=== PATIENT | female | born 1995 | race Caucasian/White ===

== ENCOUNTER → 2017-09-16 07:30 | Observation (INO) ==
[2017-09-16 05:37] VITALS: BP 113/65
--- NOTE | 2017-09-16 07:04 | Discharge Summary ---
Date of Encounter: 09/16/17 Time of Encounter: 07:04 - Discharge Diagnosis (1) 36 weeks gestation of Priority: Primary Status: Acute Comments: admitted for labor evaluation GBS collected (2) HSV infection Priority: Secondary Status: Acute Comments: history of HSV infection Patient currently taking Valtrex 500mg po BID - Discharge Medications Home Medications: Formula Tablet 1 tab PO DAILY 09/16/17 [History] Valtrex 500 PO BID 09/16/17 [History] Allergies/Adverse Reactions: 3 Allergy/AdvReac Type Severity Reaction Status Date / Time No Known Allergies Allergy Verified 02/21/17 19:37 Date of admission: 09/16/17 05:12 Discharging clinician: Alvina Carlin Anticipated date of discharge: 09/16/17 - Patient Status Disposition: Home, Self-Care Condition: Good Functional capacity at discharge: independent ambulation - Discharge Instructions Follow Up With: Cheng De Jesus MD [Partnered Physician] - Forms: Work/School Release - Diet and Activity Activity: increase activity as tolerated Diet: regular diet Hospital Course [employer] DR[employer] WORKER Time Attestation: Total time spent providing and/or coordinating discharge services: Time Spent: Less than 30 minutes Exam - Constitutional Vitals: Temp Pulse Resp BP 98.2 F 87 18 113/65 09/16/17 05:28 09/16/17 05:28 09/16/17 05:28 09/16/17 05:28 General appearance IM: A&O X 3, pleasant, no acute distress, answers questions appropriately - Respiratory Respiratory exam: Present: CTAB - Cardiovascular Cardiovascular exam IM: Present: RRR, +S1, +S2 - GI/Abdominal GI/Abdominal exam IM: normal bowel sounds - Extremities Exam Extremities exam IM: Present: calf tenderness, full ROM, normal inspection - Neurological Exam Neurological exam: alert, oriented X3, reflexes normal - Other Additional findings: FHR 130 bpm moderate variability +15x15 accels no decels noted. Contractions irregular. Group B strep culture collected prior to SVE. SVE on admission /- 2. No cervical change after 2 hours of monitoring. Patient reports +FM. - VTE Reasons for not Prescribing Prophylaxis: Treatment not Indicated - Low risk for VTE
[2017-09-16 08:20] LABS: Bilirubin,Urine Negative (Negative); Blood,Urine Negative (Negative); Clarity,Urine Cloudy (Clear); Color,Urine Yellow (Yellow); Glucose,Urine (UA) Normal (Normal); Ketones,Urine Trace mg/dL (Negative); Leukocyte Esterase,Urine Large (Negative); Nitrite,Urine Positive (Negative); PH,Urine 6.5 pH Units (5.0-8.0); Protein,Urine Negative (Neg-Trace); Specific Gravity,Urine 1.019 (1.010-1.025); Urobilinogen,Urine Normal (Normal)
[2017-09-16 08:22] LABS: Bacteria,Urine Many per hpf (None-Few); Hyaline Casts,Urine None Seen per lpf (None-Few); RBC,Urine 0-3 per hpf (0-3); Squamous Epithelial Cell,Urine Many per lpf (None-Few); WBC,Urine 50-100 per hpf (0-3)
[2017-09-16 08:58] LABS: Amphetamine Screen,Urine Negative ng/mL (Cutoff=1000); Barbiturate Screen,Urine Negative ng/mL (Cutoff=200); Benzodiazepines Screen,Urine Negative ng/mL (Cutoff=200); Cannabinoid Screen,Urine Negative ng/mL (Cutoff = 50); Cocaine Screen,Urine Negative ng/mL (Cutoff= 300); Opiate Screen,Urine Negative ng/mL (Cutoff=300); Phencyclidine Screen,Urine Negative ng/mL (Cutoff=25)
== END | disposition home or self-care (01) ==
LOC: 1NENULAB
PROVIDERS: ADMIT Advanced Practice Midwife; ATTEND Advanced Practice Midwife

== ENCOUNTER 2017-09-19 00:59 | Inpatient (IN) ==
[2017-09-18 21:41] LABS: Amphetamine Screen,Urine Negative ng/mL (Cutoff=1000); Barbiturate Screen,Urine Negative ng/mL (Cutoff=200); Benzodiazepines Screen,Urine Negative ng/mL (Cutoff=200); Cannabinoid Screen,Urine Negative ng/mL (Cutoff = 50); Cocaine Screen,Urine Negative ng/mL (Cutoff= 300); Opiate Screen,Urine Negative ng/mL (Cutoff=300); Phencyclidine Screen,Urine Negative ng/mL (Cutoff=25)
[2017-09-18 21:42] LABS: Basophils % 0.1 %; Hematocrit 35.8 % (35.3-44.9); Hemoglobin 11.9 g/dL (11.5-15.4); Immature Granulocytes % 1.2 % (0-4); Lymphocytes % 4.4 %; Mean Corpuscular HGB Conc 33.2 g/dL (31.6-35.5); Mean Corpuscular Hemoglobin 30.8 pg (28.0-33.3); Mean Corpuscular Volume 92.7 fL (83.0-100.0); Mean Platelet Volume 11.1 fL (9.4-12.4); Monocytes # 1.6 K/mcL (0.0-1.3); Monocytes % 6.7 %; Neutrophils # 20.5 K/mcL (1.6-8.9); Platelet Count 155 K/mcL (140-400); Red Blood Count 3.86 M/mcL (3.82-4.97); Red Cell Distribution Width 13.2 % (11.5-14.5); Segmented Neutrophils % 87.6 %
[2017-09-18 23:11] LABS: Bilirubin,Urine Negative (Negative); Blood,Urine Negative (Negative); Clarity,Urine Cloudy (Clear); Color,Urine Yellow (Yellow); Glucose,Urine (UA) Normal (Normal); Ketones,Urine >=160 mg/dL (Negative); Leukocyte Esterase,Urine Moderate (Negative); Nitrite,Urine Negative (Negative); Protein,Urine 30 mg/dL (Neg-Trace); Specific Gravity,Urine 1.017 (1.010-1.025); Urobilinogen,Urine Normal (Normal)
[2017-09-18 23:14] LABS: Bacteria,Urine Moderate per hpf (None-Few); RBC,Urine 0-3 per hpf (0-3); Squamous Epithelial Cell,Urine Many per lpf (None-Few); WBC,Urine 50-100 per hpf (0-3)
[2017-09-18 23:33] LABS: Hyaline Casts,Urine None Seen per lpf (None-Few); Mucus,Urine Many (Few)
--- NOTE | 2017-09-18 23:45 | OB/GYN History & Physical ---
Date of Encounter: 09/18/17 Time of Encounter: 23:30 Assessment and Plan (1) Pyelonephritis affecting in third trimester Current visit: Yes Status: Acute Positive for UTI and 09/16 treated since culture obtained, bilateral CVA tenderness right greater than left, elevated wbc's of 23.4 Probable pyelonephritis Discussed with Dr. Chaves Admission to antepartum for IV antibiotics Rocephin IV 2 g daily One dose Nubain now for contraction and intense back pain Zofran for nausea as needed Every shift NST CBC and renal ultrasound in a.m. (2) Uterine contractions Current visit: Yes Status: Acute Cervix unchanged on serial exams. /-2 (3) 36 weeks gestation of Current visit: No Status: Acute (4) HSV infection Current visit: No Status: Acute continue valtrex BID for supressive therapy. No lesions noted on vaginal exam (5) Estefania infection of genital region Current visit: Yes Status: Acute Due to recent use of antibiotics and vaginal discomfort and thick white discharge will treat with terazol. History of Present Illness Chief complaint: back pain/contractions HPI: Ms. Winston is a 21 year old female 36+3 gestation presents to triage with complaints of increasing back pain and contractions since this morning. Pt states the back pain has increased all day and never stops. Contractions remain intermittent, but increase the back pain when they occur. Reports good movement, denies vaginal bleeding or leaking of fluid, but does have increased vaginal sensitivity and discomfort. Pt states she has noted an increase in urinary frequency, but no burning or pain currently with urination. Patient completed a course of Keflex for UTI 1 week ago on the Keflex improved symptoms minimally but did not completely eliminate urinary symptoms. Patient was seen in triage on 09/16 for same symptoms, urine culture did show positive Escherichia coli UTI Past Med Surg Social Fam HX - Past Medical History Medical history: non-contributory, asthma Psychiatric history: no psych history - Past Surgical History Surgical History: other - Social History Smoking Status: Never smoker Smokeless Tobacco Status: No Alcohol use: none Drug use: none - Family History Sister Living Status: Still Living Hx Family Cardiac Disorders: No Hx Family Respiratory Disorders: No Hx Family Cancer: No Hx Family GI Disorders: No Hx Family Endocrine Disorder: No Hx Family Neuromuscular Disorders: No Hx Family Neurologic Disorders: No Hx Family HEENT Disorders: No Hx Family Autoimmune Disorders: No Hx Family Medical Disorders: No (pt denies history) Obstetrical History - Pregnancies : 1 Para: 0 Term: 0 : 0 Ab's: 0 Livin Medications and Allergies Formula Tablet 1 tab PO DAILY 09/16/17 [History] Valtrex 500 PO BID 09/16/17 [History] Albuterol Inhaler 09/18/17 [History] 3 Allergy/AdvReac Type Severity Reaction Status Date / Time No Known Allergies Allergy Verified 09/18/17 20:18 Review of System OB All systems PM: reviewed and no additional remarkable complaints except as stated - Genitourinary Genitourinary: as per HPI Exam - Constitutional Constitutional: well developed, well nourished, no acute distress, average body habitus - Neck Neck exam: full ROM - Lungs Respiratory exam: CTAB - Cardiovascular Cardiovascular exam: RRR - Abdomen Abdomen: Present: bowel sounds normal, gravid Abdomen detail: right lower quadrant: tenderness (suprapubic tenderness ), left lower quadrant: tenderness - Vagina Vagina: Present: discharge (bilateral labia reddned with thick white discharge noted. ) - Cervix Dilation: 1 Effacement: 80 Station: -2 - Uterus Uterus exam: Present: normal size, normal contour - Anus/Rectum Anus/Rectum: Present: normal perianal skin - Comments Comments: Bilateral CVA tenderness right >left Results Result Diagrams: 09/18/17 21:25 Abnormal lab results WBC 23.4 K/mcL (4.3-11.1) H 09/18/17 21:25 Neutrophils # 20.5 K/mcL (1.6-8.9) H 09/18/17 21:25 Monocytes # 1.6 K/mcL (0.0-1.3) H 09/18/17 21:25 Urine Clarity Cloudy (Clear) A 09/18/17 22:50 Urine Protein 30 mg/dL (Neg-Trace) H 09/18/17 22:50 Urine Ketones >=160 mg/dL (Negative) H 09/18/17 22:50 Ur Leukocyte Esterase Moderate (Negative) H 09/18/17 22:50 All other labs normal. - VTE Reasons for not Prescribing Prophylaxis: Treatment not Indicated - Low risk for VTE
[~2017-09-19 00:59] MED LIST: *HR* Nalbuphine 20 MG/ML AMPUL IVP ONE; *HR* Nalbuphine 20 MG/ML AMPUL ONE; Acetaminophen 325 MG TABLET PO PRN; Ondansetron 4 MG/2 ML VIAL IVP PRN; Ringers Solution, Lactated 1,000 ML IVC ONE; Ringers Solution, Lactated 1,000 ML IVC SCH; Ringers Solution, Lactated 1,000 ML ONE; Terconazole Vag CRM 20 GM TUBE VG SCH; Water for inj. (sterile) 10 ML IV ONE; cefTRIAXone 2,000 MG in Water for inj. (sterile) 20 ML IVP SCH
[2017-09-19 08:10] LABS: Basophils % 0.1 %; Eosinophils % 0.2 %; Hematocrit 28.1 % (35.3-44.9); Immature Granulocytes % 0.8 % (0-4); Lymphocytes # 1.4 K/mcL (0.6-4.6); Lymphocytes % 7.9 %; Mean Corpuscular HGB Conc 33.8 g/dL (31.6-35.5); Mean Corpuscular Volume 91.8 fL (83.0-100.0); Mean Platelet Volume 10.8 fL (9.4-12.4); Monocytes # 1.2 K/mcL (0.0-1.3); Monocytes % 6.9 %; Neutrophils # 14.3 K/mcL (1.6-8.9); Platelet Count 130 K/mcL (140-400); Red Blood Count 3.06 M/mcL (3.82-4.97); Red Cell Distribution Width 13.3 % (11.5-14.5); Segmented Neutrophils % 84.1 %
[2017-09-19 08:13] LABS: Hemoglobin 9.5 g/dL (11.5-15.4)
[2017-09-19 08:59] VITALS: BP 93/53
[2017-09-19] MEDS ORDERED: valACYclovir 500 MG TABLET PO SCH (09:00)
--- NOTE | 2017-09-19 12:08 | Discharge Summary ---
Date of Encounter: 09/19/17 Time of Encounter: 12:06 - Discharge Diagnosis (1) Urinary tract infection during in third trimester, antepartum Priority: Secondary Status: Acute Comments: Patient received IV antibiotics. Will discharge home with PO antibiotics patient to follow up with Dr. De Jesus as scheduled. (2) 36 weeks gestation of Priority: Primary Status: Acute Comments: admitted for observation - Discharge Medications Prescriptions: Nitrofurantoin (BID) [Macrobid] 100 mg PO BID 7 Days #14 capsule Home Medications: Formula Tablet 1 tab PO DAILY 09/16/17 [History] Valtrex 500 PO BID 09/16/17 [History] Albuterol Inhaler 09/18/17 [History] Acetaminophen [Tylenol] 650 mg PO Q6HR PRN tablet 09/19/17 [Rx] Nitrofurantoin (BID) [Macrobid] 100 mg PO BID 7 Days #14 capsule 09/19/17 [Rx] Terconazole Vag CRM [Terazol] 1 appl VG HS tube 09/19/17 [Rx] valACYclovir [Valtrex] 500 mg PO BID tablet 09/19/17 [Rx] Allergies/Adverse Reactions: 3 Allergy/AdvReac Type Severity Reaction Status Date / Time No Known Allergies Allergy Verified 09/18/17 20:18 Data Procedures and tests throughout hospitalization: Laboratory Tests 09/18/17 09/18/17 09/18/17 20:15 21:25 22:50 WBC 23.4 H RBC 3.86 Hgb 11.9 Hct 35.8 MCV 92.7 MCH 30.8 MCHC 33.2 RDW 13.2 Plt Count 155 MPV 11.1 Immature Gran % 1.2 Seg Neutrophils % 87.6 Lymphocytes % 4.4 Monocytes % 6.7 Eosinophils % 0.0 Basophils % 0.1 Neutrophils # 20.5 H Lymphocytes # 1.0 Monocytes # 1.6 H Eosinophils # 0.0 Basophils # 0.0 Urine Color Yellow Urine Clarity Cloudy A Urine pH 6.0 Ur Specific [place] 1.017 Urine Protein 30 H Urine Glucose (UA) Normal Urine Ketones >=160 H Urine Blood Negative Urine Nitrite Negative Urine Bilirubin Negative Urine Urobilinogen Normal Ur Leukocyte Esterase Moderate H Urine Microscopic RBC 0-3 Urine Microscopic WBC 50-100 H Ur Squamous Epith Cells Many H Urine Bacteria Moderate H Hyaline Casts None Seen Urine Mucus Many H Ur Culture Indicated? YES A Urine Opiates Screen Negative Ur Barbiturates Screen Negative Ur Phencyclidine Scrn Negative Ur Amphetamines Screen Negative U Benzodiazepines Scrn Negative Urine Cocaine Screen Negative U Marijuana (THC) Screen Negative 09/19/17 07:56 WBC 17.0 H RBC 3.06 L Hgb 9.5 L D Hct 28.1 L MCV 91.8 MCH 31.0 MCHC 33.8 RDW 13.3 Plt Count 130 L MPV 10.8 Immature Gran % 0.8 Seg Neutrophils % 84.1 Lymphocytes % 7.9 Monocytes % 6.9 Eosinophils % 0.2 Basophils % 0.1 Neutrophils # 14.3 H Lymphocytes # 1.4 Monocytes # 1.2 Eosinophils # 0.0 Basophils # 0.0 Urine Color Urine Clarity Urine pH Ur Specific [place] Urine Protein Urine Glucose (UA) Urine Ketones Urine Blood Urine Nitrite Urine Bilirubin Urine Urobilinogen Ur Leukocyte Esterase Urine Microscopic RBC Urine Microscopic WBC Ur Squamous Epith Cells Urine Bacteria Hyaline Casts Urine Mucus Ur Culture Indicated? Urine Opiates Screen Ur Barbiturates Screen Ur Phencyclidine Scrn Ur Amphetamines Screen U Benzodiazepines Scrn Urine Cocaine Screen U Marijuana (THC) Screen Labs on day of discharge: Labs from last 24 hours 09/19/17 09/18/17 09/18/17 07:56 22:50 21:25 WBC 17.0 H 23.4 H RBC 3.06 L 3.86 Hgb 9.5 L D 11.9 Hct 28.1 L 35.8 MCV 91.8 92.7 MCH 31.0 30.8 MCHC 33.8 33.2 RDW 13.3 13.2 Plt Count 130 L 155 MPV 10.8 11.1 Immature Gran % 0.8 1.2 Seg Neutrophils % 84.1 87.6 Lymphocytes % 7.9 4.4 Monocytes % 6.9 6.7 Eosinophils % 0.2 0.0 Basophils % 0.1 0.1 Neutrophils # 14.3 H 20.5 H Lymphocytes # 1.4 1.0 Monocytes # 1.2 1.6 H Eosinophils # 0.0 0.0 Basophils # 0.0 0.0 Urine Color Yellow Urine Clarity Cloudy A Urine pH 6.0 Ur Specific [place] 1.017 Urine Protein 30 H Urine Glucose (UA) Normal Urine Ketones >=160 H Urine Blood Negative Urine Nitrite Negative Urine Bilirubin Negative Urine Urobilinogen Normal Ur Leukocyte Esterase Moderate H Urine Microscopic RBC 0-3 Urine Microscopic WBC 50-100 H Ur Squamous Epith Cells Many H Urine Bacteria Moderate H Hyaline Casts None Seen Urine Mucus Many H Ur Culture Indicated? YES A Urine Opiates Screen Ur Barbiturates Screen Ur Phencyclidine Scrn Ur Amphetamines Screen U Benzodiazepines Scrn Urine Cocaine Screen U Marijuana (THC) Screen 09/18/17 20:15 WBC RBC Hgb Hct MCV MCH MCHC RDW Plt Count MPV Immature Gran % Seg Neutrophils % Lymphocytes % Monocytes % Eosinophils % Basophils % Neutrophils # Lymphocytes # Monocytes # Eosinophils # Basophils # Urine Color Urine Clarity Urine pH Ur Specific [place] Urine Protein Urine Glucose (UA) Urine Ketones Urine Blood Urine Nitrite Urine Bilirubin Urine Urobilinogen Ur Leukocyte Esterase Urine Microscopic RBC Urine Microscopic WBC Ur Squamous Epith Cells Urine Bacteria Hyaline Casts Urine Mucus Ur Culture Indicated? Urine Opiates Screen Negative Ur Barbiturates Screen Negative Ur Phencyclidine Scrn Negative Ur Amphetamines Screen Negative U Benzodiazepines Scrn Negative Urine Cocaine Screen Negative U Marijuana (THC) Screen Negative - Impressions ITS Impressions Retroperitoneum Ultrasound 09/19/17 09:00 IMPRESSION: 1. Bilateral hydronephrosis. Distal obstructing stones cannot be excluded. The ureteral jets were not visualized. 2. Unremarkable bladder ultrasound. D/ / 09/19/2017 11:17:01 Orlando Day MD / merged with [facility] Interpreting Provider: Orlando Day MD Date of admission: 09/19/17 11:33 Primary care physician: Nella Baumann CNP Discharging clinician: Alvina Carlin Anticipated date of discharge: 09/19/17 - Patient Status Disposition: Home, Self-Care Condition: Good Functional capacity at discharge: independent ambulation - Discharge Instructions Follow Up With: Nella Baumann CNP [Primary Care Provider] - Cheng De Jesus MD [Partnered Physician] - - Diet and Activity Activity: increase activity as tolerated Diet: regular diet Hospital Course 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 Time Attestation: Total time spent providing and/or coordinating discharge services: Time Spent: Less than 30 minutes Exam - Constitutional Vitals: Temp Pulse Resp BP Pulse Ox 98.0 F 92 18 93/53 98 09/19/17 07:30 09/19/17 07:30 09/19/17 07:30 09/19/17 07:30 09/19/17 01:00 General appearance IM: A&O X 3, pleasant, answers questions appropriately - Respiratory Respiratory exam: Present: CTAB - Cardiovascular Cardiovascular exam IM: Present: RRR, +S1, +S2 - GI/Abdominal GI/Abdominal exam IM: normal bowel sounds - Extremities Exam Extremities exam IM: Present: full ROM, normal capillary refill - VTE Reasons for not Prescribing Prophylaxis: Treatment not Indicated - Low risk for VTE
== END 2017-09-19 13:30 | disposition home or self-care (01) | DRG 781 ==
LOC: 1NENULAB → 1NENUOBS 00:59
PROVIDERS: ADMIT Obstetrics & Gynecology; ATTEND Obstetrics & Gynecology

== ENCOUNTER 2017-10-06 04:00 | Inpatient (IN) ==
[2017-10-06] MEDS ORDERED: *HR* Nalbuphine 20 MG/ML AMPUL IVP PRN (04:23)
[2017-10-06] MEDS ORDERED: Metoclopramide 10 MG/2 ML VIAL IVP PRN (04:23)
[2017-10-06] MEDS ORDERED: miSOPROStol 25 MCG TABLET VG PRN (04:23)
[2017-10-06] MEDS ORDERED: Naloxone 0.4 MG/ML INJ IVP PRN ×2 (04:23→08:53)
[2017-10-06] MEDS ORDERED: Famotidine 20 MG/2 ML VIAL IVP PRN (04:23)
[2017-10-06] MEDS ORDERED: Ondansetron 4 MG/2 ML VIAL IVP PRN ×2 (04:23→08:53)
[2017-10-06] MEDS ORDERED: Penicillin G Potassium 5,000,000 UNIT in D5% in Water (Mini-Bag+) 100 ML IVPB ONE (04:47)
[2017-10-06 04:57] LABS: Basophils % 0.1 %; Eosinophils # 0.1 K/mcL (0.0-0.6); Eosinophils % 1.7 %; Hematocrit 32.8 % (35.3-44.9); Hemoglobin 10.7 g/dL (11.5-15.4); Immature Granulocytes % 0.5 % (0-4); Immature Platelets 6.4 % (1.1-6.1); Lymphocytes # 2.2 K/mcL (0.6-4.6); Lymphocytes % 26.4 %; Mean Corpuscular HGB Conc 32.6 g/dL (31.6-35.5); Mean Corpuscular Hemoglobin 30.7 pg (28.0-33.3); Mean Platelet Volume 10.9 fL (9.4-12.4); Monocytes # 0.4 K/mcL (0.0-1.3); Monocytes % 4.6 %; Neutrophils # 5.6 K/mcL (1.6-8.9); Platelet Count 230 K/mcL (140-400); Red Blood Count 3.49 M/mcL (3.82-4.97); Red Cell Distribution Width 14.4 % (11.5-14.5); Segmented Neutrophils % 66.7 %
[2017-10-06] MEDS: Ringers Solution, Lactated 1,000 ML IVC SCH ×3 (05:11→12:30)
[2017-10-06 05:14] LABS: Amphetamine Screen,Urine Negative ng/mL (Cutoff=1000); Barbiturate Screen,Urine Negative ng/mL (Cutoff=200); Benzodiazepines Screen,Urine Negative ng/mL (Cutoff=200); Cannabinoid Screen,Urine Negative ng/mL (Cutoff = 50); Cocaine Screen,Urine Negative ng/mL (Cutoff= 300); Opiate Screen,Urine Negative ng/mL (Cutoff=300); Phencyclidine Screen,Urine Negative ng/mL (Cutoff=25)
[2017-10-06] MEDS ORDERED: *HR* FentaNYL (PF) 100 MCG/2 ML VIAL EP ONE (08:53)
[2017-10-06] MEDS ORDERED: EPHEDrine 50 MG/ML VIAL IVP PRN (08:53)
[2017-10-06] MEDS ORDERED: Bupivacaine-MPF 0.25% 10 ML VIAL EP ONE (08:53)
--- NOTE | 2017-10-06 08:57 | Anesthesia Evaluation PreOp ---
Date of Encounter: 10/06/17 Time of Encounter: 08:55 - Past History Planned Operation: SANGEETA Cardiac History: Denies any Significant Hx Pulmonary History: Asthma (uses albuterol inhaler approximately 3x weekly) [employer] History: Denies Any Significant HX Other Medical History: Denies Any Significant HX Anesthesia History: No Prior Anesthetic Complications, Past Anesthesia (wisdom teeth extraction) : Yes Alcohol Use: none Drug use: none Medications and Allergies Formula Tablet 1 tab PO DAILY 09/16/17 [History] Valtrex 500 mg PO BID 09/16/17 [History] Albuterol Inhaler 1 puff PO PRN PRN 09/18/17 [History] Acetaminophen [Tylenol] 650 mg PO Q6HR PRN tablet 09/19/17 [Rx] valACYclovir [Valtrex] 500 mg PO BID tablet 09/19/17 [Rx] 3 Allergy/AdvReac Type Severity Reaction Status Date / Time No Known Allergies Allergy Verified 10/06/17 04:47 - Meds/Allergy Pre-op Review Medications Reviewed: Yes Allergies Reviewed: Yes Beta Blockers on Current Med List: No Anesthesia Results - Labs 10/06/17 04:48 Anesthesia Exam BP 117/72 P 66 R 16 T 97.8 Height: 5'2" Weight: 58.9kg NPO (# of Hours): 6 Pain Scale: 10 Pain Scale Used: Numeric (1 - 10) - HEENT Pupil (Motor): Pupils equal Mallampati: II Teeth: Normal Oral Opening: Greater than 3 - [employer] LOC: Oriented [employer] Motor: Normal RUE, Normal LUE, Normal RLE, Normal LLE, Normal Face [employer] Sensory: Normal: RUE, LUE, RLE, LLE, Face - Cardiac Rhythm: Regular Murmur: None JVD: No Carotid Bruit: No - Pulmonary Breath Sounds: bilateral Clear Respiratory Effort: Symmetrical Anesthesia Assess/Plan ASA Score: 2 Modified [place] Scale for Level of Consciousness: Cooperative, oriented, and tranquil Anesthetic Plan: Regional Autologous Blood: No Monitoring Plan: Standard Monitors Recovery Plan: Other
[2017-10-06] MEDS ORDERED: Penicillin G Potassium 2,500,000 UNIT in D5% in Water 100 ML IVPB SCH (09:00)
[2017-10-06] MEDS ORDERED: Epidural Premix (fent/bupiv) 110 ML EP SCH (09:00)
[2017-10-06] MEDS ORDERED: *HR* FentaNYL (PF) 100 MCG/2 ML VIAL ONE (09:04)
[2017-10-06] MEDS ORDERED: Bupivacaine-MPF 0.25% 10 ML VIAL ONE (09:04)
[2017-10-06] MEDS ORDERED: Epidural Premix (fent/bupiv) 110 ML EP ONE (09:06)
--- NOTE | 2017-10-06 10:16 | Anesthesia Procedures ---
Date of Encounter: 10/06/17 Time of Encounter: 09:50 Procedures: Anesthesia - Epidural/Spinal Patient ID/Chart reviewed: Yes Patient examined: Yes OB Eval: Gestational age: 39 OB Eval: : 1 OB Eval: Hx Para: 0 OB Eval: Dilated at (cm): 7 OB Eval: Contractions: Non-stressed pattern Consent Obtained: Yes Supplemental Oxygen: None/Room Air Site Prep: Aseptic Technique, Sterile prep and drape, Povidone-Iodine 1% Patient position: upright Local Anesthetic: Lidocaine 1% Amount of Local Anesthetic used: 3 Touhy Needle Gauge: 18 Touhy Needle Depth (cm): 5 Catheter Depth at Skin (cm): 14 Test Dose (1.5% Lido + Epi): Volume given (mls): 3 Test Dose Result: Negative Loading Dose: 0.25% Marcaine (mls): 10 Loading Dose: Fentanyl (mcg): 100 Loading Dose Administered: Thru Catheter Infusion Med: 0.125% Bupivacaine w/ 2 mcg/ml Fentanyl Infusion Rate (mls/hr): [address]: Tegaderm, Tape Interspace Used: L4-L5 Loss of Resistance (VONNIE): Yes Blood: No CSF: No Paresthesia: No Procedure: SANGEETA placed 1st pass in upright position without any immediate noted complications. VSS and FHT stable throughout. Vitals + FHT's: 0950 BP 111/51 P 73 R 20 1010 BP 136/63 P 78 R 16 FHT 120s
[2017-10-06] MEDS ORDERED: Oxytocin 20 units/ LR 1000 mL 20 UNIT/1,000 ML BAG IVC ONE ×2 (10:18→15:27)
--- NOTE | 2017-10-06 10:31 | OB/GYN History & Physical ---
Date of Encounter: 10/06/17 Time of Encounter: 10:31 Assessment and Plan (1) Elective induction of labor planned Current visit: Yes Status: Acute after cytotec is done, ok to start pitocin, ok for epidural, anticipate History of Present Illness HPI: Ms. Winston is a 21 year old female @ 39 + weeks who presented to L&D for IOL, no LOF, VB, feels some of her ctxs, feels good FM, cytotec given @ 5 0' clock, patient is comfortable though wants an epidural soon. Past Med Surg Social Fam HX - Past Medical History Medical history: asthma Psychiatric history: no psych history - Past Surgical History Surgical History: other - Social History Smoking Status: Never smoker Smokeless Tobacco Status: No Alcohol use: none Drug use: none - Family History Sister Living Status: Still Living Hx Family Cardiac Disorders: No Hx Family Respiratory Disorders: No Hx Family Cancer: No Hx Family GI Disorders: No Hx Family Endocrine Disorder: No Hx Family Neuromuscular Disorders: No Hx Family Neurologic Disorders: No Hx Family HEENT Disorders: No Hx Family Autoimmune Disorders: No Obstetrical History - Pregnancies : 1 Medications and Allergies Formula Tablet 1 tab PO DAILY 09/16/17 [History] Valtrex 500 mg PO BID 09/16/17 [History] Albuterol Inhaler 1 puff PO PRN PRN 09/18/17 [History] Acetaminophen [Tylenol] 650 mg PO Q6HR PRN tablet 09/19/17 [Rx] valACYclovir [Valtrex] 500 mg PO BID tablet 09/19/17 [Rx] 3 Allergy/AdvReac Type Severity Reaction Status Date / Time No Known Allergies Allergy Verified 10/06/17 04:47 Review of System OB All systems PM: reviewed and no additional remarkable complaints except as stated Exam - Constitutional Constitutional: well nourished - HEENT HEENT: PERRL - Neck Neck exam: full ROM - Lungs Respiratory exam: CTAB - Cardiovascular Cardiovascular exam: RRR - Abdomen Abdomen: Present: gravid - Extremities Extremities exam: normal inspection - Cervix Dilation: 2 Results Result Diagrams: 10/06/17 04:48 Abnormal lab results RBC 3.49 M/mcL (3.82-4.97) L 10/06/17 04:48 Hgb 10.7 g/dL (11.5-15.4) L 10/06/17 04:48 Hct 32.8 % (35.3-44.9) L 10/06/17 04:48 Immature Plt Fraction 6.4 % (1.1-6.1) H 10/06/17 04:48 All other labs normal. - VTE Reasons for not Prescribing Prophylaxis: Treatment not Indicated - Low risk for VTE
--- NOTE | 2017-10-06 10:33 | OB Labor Progress Note ---
Date of Encounter: 10/06/17 Time of Encounter: 10:31 Labor Progress Note - Subjective Subjective: patient 8-9cm, has epidural, received 1 dose of cytotec, feeling the urge to push - Vital Signs Vital Signs: VSS - Cervix Cervix: 8-9cm - Heart Tones Heart Tones: CAT 1 - Plan Plan: allow labor progress, anticipate
[2017-10-06] MEDS ORDERED: Lidocaine 1% 20 ML MDV ONE (13:52)
--- NOTE | 2017-10-06 14:17 | OB/GYN Procedure Note ---
Delivery - Delivery Date: 10/06/17 Provider: Cheng De Jesus Intrapartum events: none Delivery induction: misoprostol Delivery augmentation: rupture of membranes Delivery monitor: external FHT, external uterine Anesthesia: epidural Estimated Blood Loss: 350 - Repair Episiotomy: none Laceration Description: Perineal - 2nd Degree - Complications Delivery complications: none - Disposition Mom disposition: stable in LDR [place] disposition: stable in LDR - Comments Comments: 21 y/o now delivered a viable male weight 7lbs 6oz @ 1344 hrs, delivered ANDRA, no nuchal cord, APGARs 9/9, Placenta delivered @ 1348hrs, 2nd degree perineal laceration repaired with 3-0 vicryl, EBL 350, mother and doing very well.
[2017-10-06] MEDS ORDERED: Rho Immune Globulin 1,500 UNIT SYRINGE IM PRN (16:24)
[2017-10-06] MEDS ORDERED: Oxytocin 20 units/ LR 1000 mL 20 UNIT/1,000 ML BAG IVC SCH (16:24)
[2017-10-06] MEDS ORDERED: Lanolin 28 GM TUBE TP PRN (16:24)
[2017-10-06] MEDS ORDERED: Benzocaine/Menthol 56 GM AEROSOL SPRAY TP PRN (16:24)
[2017-10-06] MEDS ORDERED: Acetaminophen 325 MG TABLET PO PRN (16:24)
[2017-10-07] MEDS: Ibuprofen 600 MG TABLET PO PRN ×2 (02:44→09:58)
[2017-10-07 06:20] LABS: Basophils % 0.2 %; Eosinophils # 0.1 K/mcL (0.0-0.6); Eosinophils % 1.3 %; Hematocrit 28.6 % (35.3-44.9); Hemoglobin 9.4 g/dL (11.5-15.4); Immature Granulocytes % 0.6 % (0-4); Lymphocytes # 1.9 K/mcL (0.6-4.6); Lymphocytes % 18.8 %; Mean Corpuscular HGB Conc 32.9 g/dL (31.6-35.5); Mean Corpuscular Hemoglobin 31.2 pg (28.0-33.3); Mean Platelet Volume 11.8 fL (9.4-12.4); Monocytes # 0.6 K/mcL (0.0-1.3); Monocytes % 5.6 %; Neutrophils # 7.4 K/mcL (1.6-8.9); Platelet Count 205 K/mcL (140-400); Red Blood Count 3.01 M/mcL (3.82-4.97); Red Cell Distribution Width 14.7 % (11.5-14.5); Segmented Neutrophils % 73.5 %
[2017-10-07 07:56] VITALS: BP 107/65
[2017-10-07] MEDS ORDERED: Prenatal Vit/FA 1 EACH TABLET PO SCH (09:00)
--- NOTE | 2017-10-07 09:14 | Discharge Summary ---
Date of Encounter: 10/07/17 Time of Encounter: 09:09 - Discharge Diagnosis (1) Vaginal delivery Priority: Primary Status: Acute Comments: Continue routine care discharge home today follow up with Dr. De Jesus in 4-6 days (2) Breast feeding status of mother Priority: Secondary Status: Acute Comments: support prn (3) Second degree perineal laceration during delivery Priority: Secondary Status: Acute Comments: pericare prn ice packs prn sitz bath prn - Discharge Medications Prescriptions: Ibuprofen [Motrin] 600 mg PO Q6HR PRN #60 tablet PRN Reason: Cramping Docusate [Colace] 100 mg PO BID #30 capsule Home Medications: Formula Tablet 1 tab PO DAILY 09/16/17 [History] Valtrex 500 mg PO BID 09/16/17 [History] Albuterol Inhaler 1 puff PO PRN PRN 09/18/17 [History] Benzocaine/Menthol [place] [Dermoplast [place]] 1 appl TP QID PRN aerosol 10/07/17 [Rx] Docusate [Colace] 100 mg PO BID #30 capsule 10/07/17 [Rx] Ibuprofen [Motrin] 600 mg PO Q6HR PRN #60 tablet 10/07/17 [Rx] Lanolin 1 appl TP Q4HR PRN tube 10/07/17 [Rx] Vit/FA 1 each PO DAILY tablet 10/07/17 [Rx] Allergies/Adverse Reactions: 3 Allergy/AdvReac Type Severity Reaction Status Date / Time No Known Allergies Allergy Verified 10/06/17 04:47 Data Procedures and tests throughout hospitalization: Laboratory Tests 10/06/17 10/06/17 10/06/17 04:48 04:48 14:15 WBC 8.3 RBC 3.49 L Hgb 10.7 L Hct 32.8 L MCV 94.0 MCH 30.7 MCHC 32.6 RDW 14.4 Plt Count 230 MPV 10.9 Immature Gran % 0.5 Seg Neutrophils % 66.7 Lymphocytes % 26.4 Monocytes % 4.6 Eosinophils % 1.7 Basophils % 0.1 Neutrophils # 5.6 Lymphocytes # 2.2 Monocytes # 0.4 Eosinophils # 0.1 Basophils # 0.0 Immature Plt Fraction 6.4 H Urine Opiates Screen Negative Ur Barbiturates Screen Negative Ur Phencyclidine Scrn Negative Ur Amphetamines Screen Negative U Benzodiazepines Scrn Negative Urine Cocaine Screen Negative U Marijuana (THC) Screen Negative Baby's Blood Type A RH POSITIVE Mother's Blood Type O RH NEGATIVE Rhogam Indicated YES 10/07/17 05:33 WBC 10.1 RBC 3.01 L Hgb 9.4 L Hct 28.6 L MCV 95.0 MCH 31.2 MCHC 32.9 RDW 14.7 H Plt Count 205 MPV 11.8 Immature Gran % 0.6 Seg Neutrophils % 73.5 Lymphocytes % 18.8 Monocytes % 5.6 Eosinophils % 1.3 Basophils % 0.2 Neutrophils # 7.4 Lymphocytes # 1.9 Monocytes # 0.6 Eosinophils # 0.1 Basophils # 0.0 Immature Plt Fraction Urine Opiates Screen Ur Barbiturates Screen Ur Phencyclidine Scrn Ur Amphetamines Screen U Benzodiazepines Scrn Urine Cocaine Screen U Marijuana (THC) Screen Baby's Blood Type Mother's Blood Type Rhogam Indicated Labs on day of discharge: Labs from last 24 hours 10/07/17 10/06/17 05:33 14:15 WBC 10.1 RBC 3.01 L Hgb 9.4 L Hct 28.6 L MCV 95.0 MCH 31.2 MCHC 32.9 RDW 14.7 H Plt Count 205 MPV 11.8 Immature Gran % 0.6 Seg Neutrophils % 73.5 Lymphocytes % 18.8 Monocytes % 5.6 Eosinophils % 1.3 Basophils % 0.2 Neutrophils # 7.4 Lymphocytes # 1.9 Monocytes # 0.6 Eosinophils # 0.1 Basophils # 0.0 Screen Pending Baby's Blood Type A RH POSITIVE Mother's Blood Type O RH NEGATIVE Rhogam Indicated YES Rhogam Req for Mother Pending Date of admission: 10/06/17 04:22 Primary care physician: Nella Baumann CNP Consults: 10/06/17 16:24 Consult to Testing Projects Administrator [CONS] Routine Comment: Vaginal delivery, consult needed Discharging clinician: Alvina Carlin Anticipated date of discharge: 10/07/17 - Patient Status Disposition: Home, Self-Care Condition: Good Functional capacity at discharge: independent ambulation - Discharge Instructions Follow Up With: Nella Baumann CNP [Primary Care Provider] - Cheng De Jesus MD [Partnered Physician] - - Diet and Activity Activity: increase activity as tolerated Diet: regular diet Hospital Course Reason for admission: induction of labor Delivery: Episiotomy: none Laceration: 2nd degree Other procedures: none complications: none Discharge diagnosis: IUP at term delivered baby: male (breast feeding) Time Attestation: Total time spent providing and/or coordinating discharge services: Time Spent: Less than 30 minutes Exam - Constitutional Vitals: Temp Pulse Resp BP Pulse Ox 97.8 F 71 14 107/65 96 10/07/17 07:55 10/07/17 07:55 10/07/17 07:55 10/07/17 07:55 10/07/17 07:55 General appearance IM: A&O X 3, pleasant, answers questions appropriately - Respiratory Respiratory exam: Present: CTAB - Cardiovascular Cardiovascular exam IM: Present: RRR, +S1, +S2 - GI/Abdominal GI/Abdominal exam IM: normal bowel sounds - Uterine Tone: Firm Uterus Position: 2 Fingers Below Umbilicus - Extremities Exam Extremities exam IM: Present: calf tenderness, full ROM, normal inspection - Neurological Exam Neurological exam: alert, oriented X3, reflexes normal
== END 2017-10-07 12:30 | disposition home or self-care (01) | DRG 775 ==
LOC: 1NENULAB 04:22 → 1NENUOBS 17:21
PROVIDERS: ADMIT Student in an Organized Health Care Education/Training Program; ATTEND Student in an Organized Health Care Education/Training Program

== ENCOUNTER 2020-09-10 19:59 | Inpatient (IN) ==
[2020-09-10 20:58] LABS: Basophils % 0.4 %; Eosinophils # 0.3 K/mcL (0.0-0.6); Eosinophils % 4.4 %; Hematocrit 44.9 % (35.3-44.9); Hemoglobin 14.7 g/dL (11.5-15.4); Immature Granulocytes % 0.4 % (0-4); Lymphocytes # 2.3 K/mcL (0.6-4.6); Lymphocytes % 33.1 %; Mean Corpuscular HGB Conc 32.7 g/dL (31.6-35.5); Mean Corpuscular Hemoglobin 31.4 pg (28.0-33.3); Mean Corpuscular Volume 95.9 fL (83.0-100.0); Mean Platelet Volume 10.6 fL (9.4-12.4); Monocytes # 0.5 K/mcL (0.0-1.3); Monocytes % 7.2 %; Neutrophils # 3.9 K/mcL (1.6-8.9); Platelet Count 224 K/mcL (140-400); Red Blood Count 4.68 M/mcL (3.82-4.97); Red Cell Distribution Width 12.1 % (11.5-14.5); Segmented Neutrophils % 54.5 %; White Blood Count 7.1 K/mcL (4.3-11.1)
[2020-09-10 21:03] LABS: Acetaminophen < 10 mcg/mL (10-20); BUN/Creatinine Ratio 17 (6-26); Blood Urea Nitrogen 15 mg/dL (6-20); Calcium 9.8 mg/dL (8.6-10.3); Carbon Dioxide 27 mEq/L (23-29); Chloride 104 mEq/L (98-107); Ethanol < 10 mg/dL (Less than 10); Glucose 91 mg/dL (70-105); Osmolality,Calculated 286 (280-300); Potassium 3.7 mEq/L (3.5-5.1); Salicylate < 2.5 mg/dL (15.0-30.0); Sodium 138 mEq/L (136-145); eGFR For African Americans > 60 (> 60); eGFR For Non-African Americans > 60 (> 60)
[2020-09-10 21:12] LABS: Amphetamine Screen,Urine Negative ng/mL (Cutoff=1000); Barbiturate Screen,Urine Negative ng/mL (Cutoff=200); Benzodiazepines Screen,Urine Negative ng/mL (Cutoff=200); Cannabinoid Screen,Urine Negative ng/mL (Cutoff = 50); Cocaine Screen,Urine Negative ng/mL (Cutoff= 300); Opiate Screen,Urine Negative ng/mL (Cutoff=300); Phencyclidine Screen,Urine Negative ng/mL (Cutoff=25)
[2020-09-10 21:13] LABS: Bilirubin,Urine Negative (Negative); Blood,Urine Negative (Negative); Clarity,Urine Slightly Cloudy (Clear); Color,Urine Yellow (Yellow); Glucose,Urine (UA) Normal (Normal); Ketones,Urine Negative (Negative); Leukocyte Esterase,Urine Trace (Negative); Nitrite,Urine Positive (Negative); Protein,Urine Negative (Neg-Trace); Specific Gravity,Urine >= 1.030 (1.010-1.025); Urobilinogen,Urine Normal (Normal)
[2020-09-10 21:22] LABS: RBC,Urine 0-3 per hpf (0-3)
[2020-09-10 21:23] LABS: Bacteria,Urine Many per hpf (None-Few); Hyaline Casts,Urine None Seen per lpf (None Seen); Mucus,Urine Few per lpf (None-Few); Squamous Epithelial Cell,Urine Few per hpf (None-Few)
[2020-09-10] MEDS ORDERED: cephALEXin 250 MG CAPSULE PO ONE (21:32)
[2020-09-10] MEDS ORDERED: MOM Conc 10 ML UD.LIQ PO PRN (22:31)
[2020-09-10] MEDS ORDERED: Mag Hydrox/Al Hydrox/Simeth 30 ML UDC PO PRN (22:31)
[2020-09-10] MEDS ORDERED: *HR* LORazepam 2 MG/ML VIAL IM PRN (22:31)
[2020-09-10] MEDS ORDERED: Ibuprofen 400 MG TABLET PO PRN (22:31)
[2020-09-10] MEDS ORDERED: Haloperidol Lactate 5 MG/ML VIAL IM PRN (22:31)
[2020-09-10] MEDS ORDERED: traZODone 50 MG TABLET PO PRN (22:31)
[2020-09-10] MEDS ORDERED: haloperidoL 5 MG TABLET PO PRN (22:31)
[2020-09-10] MEDS ORDERED: *HR* LORazepam 1 MG TABLET PO PRN (22:31)
[2020-09-11] MEDS: cephALEXin 500 MG CAPSULE PO SCH ×2 (08:42→20:34)
[2020-09-11] MEDS: BuPROPion XL (24 HR) 150 MG TABLET PO SCH (13:07)
[2020-09-12] MEDS: BuPROPion XL (24 HR) 150 MG TABLET PO SCH (08:45)
[2020-09-12] MEDS: cephALEXin 500 MG CAPSULE PO SCH (08:45)
[2020-09-12 09:07] VITALS: BP 93/61
== END 2020-09-12 16:30 | disposition home or self-care (01) | DRG 885 ==
LOC: EMEROOARM 19:59 → 1ANU 22:26
PROVIDERS: ADMIT Psychiatry & Neurology Psychiatry; ATTEND Psychiatry & Neurology Psychiatry